=== PATIENT | female | born 1950 | race Two or more races ===

== ENCOUNTER 2019-10-07 21:28 | Emergency (ER) | payer MEDICARE, MEDICAID ==
[~2019-10-07] VITALS: Ht 160 cm; Wt 86.2 kg
[2019-10-07] MEDS ORDERED: Metoclopramide 10mg/2ml Inj IVP ONE (21:30)
[2019-10-07] MEDS ORDERED: Omnipaque-300 100ml vial INJ PRN (21:30)
[2019-10-07] MEDS ORDERED: Morphine Sulfate 2mg/ml Inj(IV/IM USE ONLY) IVP ONE ×2 (21:30→22:30)
[2019-10-07] MEDS ORDERED: DiphenhydrAMINE 50mg/ml Inj IVP ONE (21:30)
--- NOTE | 2019-10-07 22:02 | Emergency Room Report ---
History of Present Illness General Chief Complaint: Abdominal Pain Source: Patient, EMS (Jarred Lynn MD) Present Illness HPI Patient called 911 because she was having severe cramps in her legs. Then her abdomen started hurting. Patient has a history of cirrhosis. This began earlier today. She states she is never had this problem before. She denies any fevers or chills. She will not characterize the pain in her abdomen. She states the muscle cramps are severe causing 10/10 pain. They are worse in the right leg and foot. The patient is in distress and will not answer most questions regarding review of systems. (Jarred Lynn MD) Allergies: Coded Allergies: No Known Allergies (Unverified , 10/07/19) COVID-19 Screening Contact w/high risk pt: No Experienced COVID-19 symptoms?: No COVID-19 Testing performed PAYMENT REP: No (Jarred Lynn MD) Patient History Limited by: medical condition Past Medical History: see triage record Social History Narrative From home Reviewed Nursing Documentation: PMH: Agreed; PSxH: Agreed (Jarred Lynn MD) Nursing Documentation-PMH Hx Hypertension: Yes - LIVER CIRRHOSIS Hx Diabetes: Yes (Jarred Lynn MD) Review of Systems All Other Systems: limited (Jarred Lynn MD) Physical Exam Vital Signs Date Time Temp Pulse Resp B/P (MAP) Pulse Ox O2 Delivery O2 Flow Rate FiO2 10/07/19 21:23 97.3 86 20 119/68 (85) 99 Room Air Sp02 EP Interpretation: reviewed, normal General Appearance: moderate distress, obese Head: normocephalic Eyes: bilateral eye normal inspection, bilateral eye PERRL, bilateral eye EOMI , bilateral eye other - Pterygiums ENT: moist mucus membranes Respiratory: chest non-tender, lungs clear Cardiovascular #1: regular rate, rhythm, no edema Cardiovascular #2: 2+ radial (R) Gastrointestinal: soft, no rebound, tenderness - Reported, hernia - Miguel Joo , overweight Genitourinary: no CVA tenderness Musculoskeletal: normal range of motion, no calf tenderness, other - Right legs with muscles and cramps Neurologic: motor strength/tone normal, loftsman III-XII nml as tested, DTRs symmetric, sensory intact, speech normal, other Psychiatric: anxious - In severe pain Skin: no rash, warm/dry, other - Tattoos (Jarred Lynn MD) Medical Decision Making Diagnostic Impression: Primary Impression: Abdominal pain Qualified Codes: R10.84 - Generalized abdominal pain Additional Impressions: Cirrhosis Qualified Codes: K74.60 - Unspecified cirrhosis of liver Hypomagnesemia Pleural effusion Cholecystitis Muscle cramps ER Course Patient presents and moderate distress complaining of cramps and abdominal pain. Differential includes electrolyte imbalance, DVT, peritonitis, diverticulitis, urinary tract infection, aortic aneurysm amongst others. Patient evaluated with EKG, chest x-ray, CT of the abdomen and pelvis and labs. Patient treated with Reglan, Benadryl, Pepcid and morphine. EKG sinus rhythm with prolonged QT interval. Chest x-ray no infiltrates. White count normal with slightly elevated neutrophils but no left shift. CMP remarkable for elevated liver function tests and glucose. Ammonia minimally elevated. Lab call with elevated lactic acid. Will give 1 liter bolus now and re-assess. Concern about possible fluid overload. Multiple causes for elevated lactate - liver failure. 2241 Will cover with cefepime and Levaquin to cover abdominal source. Strickland ordered. Patient pain improved. Less cramping after magnesium and morphine. Abdomen still still soft. Patient signed out to Dr. Maddox for ultimate disposition. Patient needs admission to telemetry due to elevated lactic acid and probable further antibiotic administration. See labs recorded by Dr. Maddox. (Jarred Lynn MD) ER Course Patient was endorsed me by Dr. Lynn. Patient had extremity cramping as well as abdominal discomfort and history of cirrhosis. CT imaging had showed some gallbladder thickening and abnormal liver function tests as well as right-sided pleural effusion. Patient was discussed with Dr. Nettles and patient will be transferred to [facility] facility. Lactic acid level was noted to be improved. Labs Test 10/07/19 21:40 10/07/19 22:00 10/07/19 23:30 White Blood Count 8.9 K/UL (4.8-10.8) Red Blood Count 4.21 M/UL (4.20-5.40) Hemoglobin 11.1 G/DL (12.0-16.0) Hematocrit 35.3 % (37.0-47.0) Mean Corpuscular Volume 84 FL (80-99) Mean Corpuscular Hemoglobin 26.5 PG (27.0-31.0) Mean Corpuscular Hemoglobin Concent 31.6 G/DL (32.0-36.0) Red Cell Distribution Width 16.0 % (11.6-14.8) Platelet Count 141 K/UL (150-450) Mean Platelet Volume 9.3 FL (6.5-10.1) Neutrophils (%) (Auto) 74.2 % (45.0-75.0) Lymphocytes (%) (Auto) 14.6 % (20.0-45.0) Monocytes (%) (Auto) 8.9 % (1.0-10.0) Eosinophils (%) (Auto) 1.5 % (0.0-3.0) Basophils (%) (Auto) 0.8 % (0.0-2.0) Sodium Level 136 MMOL/L (136-145) Potassium Level 3.5 MMOL/L (3.5-5.1) Chloride Level 100 MMOL/L (98-107) Carbon Dioxide Level 24 MMOL/L (21-32) Anion Gap 12 mmol/L (5-15) Blood Urea Nitrogen 11 mg/dL (7-18) Creatinine 1.1 MG/DL (0.55-1.30) Estimat Glomerular Filtration Rate 49.4 mL/min (>60) Glucose Level 181 MG/DL (74-106) Calcium Level 8.7 MG/DL (8.5-10.1) Magnesium Level 1.6 MG/DL (1.8-2.4) Total Bilirubin 2.0 MG/DL (0.2-1.0) Direct Bilirubin 0.5 MG/DL (0.0-0.3) Aspartate Amino Transf (AST/SGOT) 44 U/L (15-37) Alanine Aminotransferase (ALT/SGPT) 44 U/L (12-78) Alkaline Phosphatase 140 U/L (46-116) Ammonia 38 umol/L (11-32) Troponin I 0.000 ng/mL (0.000-0.056) Total Protein 7.2 G/DL (6.4-8.2) Albumin 3.4 G/DL (3.4-5.0) Globulin 3.8 g/dL Albumin/Globulin Ratio 0.9 (1.0-2.7) Lipase 130 U/L (73-393) Serum Alcohol < 3 mg/dL Prothrombin Time 11.3 SEC (9.30-11.50) Prothromb Time International Ratio 1.0 (0.9-1.1) Activated Partial Thromboplast Time 24 SEC (23-33) Urine Color Pale yellow Urine Appearance Clear Urine pH 6.5 (4.5-8.0) Urine Specific [place] 1.005 (1.005-1.035) Urine Protein Negative (NEGATIVE) Urine Glucose (UA) Negative (NEGATIVE) Urine Ketones Negative (NEGATIVE) Urine Blood Negative (NEGATIVE) Urine Nitrite Negative (NEGATIVE) Urine Bilirubin Negative (NEGATIVE) Urine Urobilinogen Normal MG/DL (0.0-1.0) Urine Leukocyte Esterase Negative (NEGATIVE) Lactic Acid Level 1.90 mmol/L (0.66-2.22) Urine Opiates Screen Negative (NEGATIVE) Urine Barbiturates Screen Negative (NEGATIVE) Phencyclidine (PCP) Screen Negative (NEGATIVE) Urine Amphetamines Screen Negative (NEGATIVE) Urine Benzodiazepines Screen Negative (NEGATIVE) Urine Cocaine Screen Negative (NEGATIVE) Urine Marijuana (THC) Screen Negative (NEGATIVE) (Layton Maddox MD) EKG Diagnostic Results Rate: normal Rhythm: NSR ST Segments: no acute changes - Prolonged QT (Jarred Lynn MD) Rhythm Strip Diag. Results EP Interpretation: yes Rhythm: NSR, no PVC's, no ectopy (Jarred Lynn MD) Chest X-Ray Diagnostic Results Chest X-Ray Diagnostic Results : Chest X-Ray Ordered: Yes # of Views/Limited/Complete: 1 View Indication: Other EP Interpretation: Yes Interpretation: no consolidation, no effusion, no pneumothorax Impression: No acute disease Electronically Signed by: Electronically signed by Jarred Lynn MD (Jarred Lynn MD) CT/MRI/US Diagnostic Results CT/MRI/US Diagnostic Results : Imaging Test Ordered: CT abdomen and pelvis Impression 1. Cirrhosis, recanalized umbilical vein, massive splenomegaly 20cm AP dimension, upper abdominal varices. 2. Liquid small bowel contents could be incidental or could represent an infectious or inflammatory enteritis in the proper context. 3. Gallbladder distention with mild wall thickening, correlate to exclude acute cholecystitis. This could also be due to cirrhosis. 4. Moderate right low-attenuation layering pleural effusion with passive atelectasis. 5. Colonic diverticulosis without acute diverticulitis. (Jarred Lynn MD) Last Vital Signs Date Time Temp Pulse Resp B/P (MAP) Pulse Ox O2 Delivery O2 Flow Rate FiO2 8/19/20 23:22 71 18 100 Room Air 21 67 18 97 10/07/19 23:00 97.3 119/68 Status: improved (Jarred Lynn MD) Status: improved (Layton Maddox MD) Disposition: SHORT-TERM HOSP Condition: Serious Jarred Lynn MD Oct 07, 2019 22:02 Layton Maddox MD Oct 08, 2019 01:01
[2019-10-07 22:05] LABS: BASOPHILS % (AUTO) 0.8 % (0.0-2.0); EOSINOPHILS % (AUTO) 1.5 % (0.0-3.0); HEMATOCRIT 35.3 % (37.0-47.0); HEMOGLOBIN 11.1 G/DL (12.0-16.0); LYMPHOCYTES % (AUTO) 14.6 % (20.0-45.0); MEAN CORPUSCULAR VOLUME 84 FL (80-99); MONOCYTES % (AUTO) 8.9 % (1.0-10.0); NEUTROPHILS % (AUTO) 74.2 % (45.0-75.0); PLATELET COUNT 141 K/UL (150-450); RED BLOOD COUNT 4.21 M/UL (4.20-5.40); WHITE BLOOD COUNT 8.9 K/UL (4.8-10.8)
[2019-10-07 22:13] LABS: ANION GAP 12 mmol/L (5-15); BLOOD UREA NITROGEN 11 mg/dL (7-18); CALCIUM 8.7 MG/DL (8.5-10.1); CARBON DIOXIDE 24 MMOL/L (21-32); CHLORIDE 100 MMOL/L (98-107); CREATININE 1.1 MG/DL (0.55-1.30); POTASSIUM 3.5 MMOL/L (3.5-5.1); SODIUM 136 MMOL/L (136-145)
[2019-10-07] MEDS ORDERED: Morphine Sulfate 4mg/ml Inj (IV USE ONLY) IVP ONE (22:15)
[2019-10-07 22:16] LABS: AMMONIA 38 umol/L (11-32)
[2019-10-07 22:30] LABS: ALANINE AMINOTRANSFERASE 44 U/L (12-78); ALBUMIN 3.4 G/DL (3.4-5.0); ALBUMIN/GLOBULIN RATIO 0.9 (1.0-2.7); ALKALINE PHOSPHATASE 140 U/L (46-116); ASPARTATE AMINO TRANSFERASE 44 U/L (15-37)
[2019-10-07 22:33] LABS: BILIRUBIN,DIRECT 0.5 MG/DL (0.0-0.3)
--- NOTE | 2019-10-07 22:54 | Diagnostic Imaging Report ---
EXAM: CT Abdomen and Pelvis With Intravenous Contrast CLINICAL HISTORY: ABD PAIN TECHNIQUE: Axial computed tomography images of the abdomen and pelvis with intravenous contrast. CTDI is 18.9 mGy and DLP is 1045.5 mGy-cm. One or more of the following dose reduction techniques were used: automated exposure control, adjustment of the mA and/or kV according to patient size, use of iterative reconstruction technique. Coronal and sagittal reformatted images were created and reviewed. COMPARISON: No relevant prior studies available. FINDINGS: Lung bases: See below. Pleural space: Moderate right low-attenuation layering pleural effusion with passive atelectasis. ABDOMEN: Liver: Cirrhosis, recanalized umbilical vein, massive splenomegaly 20cm AP dimension, upper abdominal varices. Gallbladder and bile ducts: Gallbladder distention with mild wall thickening, correlate to exclude acute cholecystitis. This could also be due to cirrhosis. No ductal dilation. Pancreas: Unremarkable. No mass. No ductal dilation. Spleen: See above. Adrenals: Unremarkable. No mass. Kidneys and ureters: Benign right renal 3.1cm cyst requiring no additional followup. Unremarkable kidneys otherwise. No hydronephrosis. Stomach and bowel: Colonic diverticulosis without acute diverticulitis. Liquid small bowel contents could be incidental or could represent an infectious or inflammatory enteritis in the proper context. No obstruction. PELVIS: Appendix: No findings to suggest acute appendicitis. Bladder: Unremarkable. No mass. Reproductive: Unremarkable as visualized. ABDOMEN and PELVIS: Intraperitoneal space: Unremarkable. No free air. No significant fluid collection. Bones/joints: Degenerative spine findings. No acute fracture. No dislocation. Soft tissues: Fat containing periumbilical hernia. Vasculature: See above. Lymph nodes: Unremarkable. No enlarged lymph nodes. IMPRESSION: 1. Cirrhosis, recanalized umbilical vein, massive splenomegaly 20cm AP dimension, upper abdominal varices. 2. Liquid small bowel contents could be incidental or could represent an infectious or inflammatory enteritis in the proper context. 3. Gallbladder distention with mild wall thickening, correlate to exclude acute cholecystitis. This could also be due to cirrhosis. 4. Moderate right low-attenuation layering pleural effusion with passive atelectasis. 5. Colonic diverticulosis without acute diverticulitis.
[2019-10-07 23:00] VITALS: BP 119/68
[2019-10-07] MEDS ORDERED: Cefepime HCl 1 GM in D5W 55 ML IVPB ONE (23:00)
[2019-10-07 23:43] LABS: APPEARANCE,URINE CLEAR; BILIRUBIN, URINE NEGATIVE (NEGATIVE); COLOR,URINE PALE YELLOW; GLUCOSE, URINE (UA) NEGATIVE (NEGATIVE); KETONES,URINE NEGATIVE (NEGATIVE); NITRITE,URINE NEGATIVE (NEGATIVE); PH,URINE 6.5 (4.5-8.0); PROTEIN,URINE NEGATIVE (NEGATIVE); UROBILINOGEN,URINE NORMAL MG/DL (0.0-1.0)
[2019-10-08 00:01] LABS: LEUKOCYTE ESTERASE ,URINE NEGATIVE (NEGATIVE)
[2019-10-08 02:27] VITALS: BP 103/51
--- NOTE | 2019-10-08 09:27 | Diagnostic Imaging Report ---
Indication: Reason For Exam: ABD PAIN Technique: Single AP view of the chest. Comparison: None. Findings: Heart is not enlarged when accounting for projection and technique. There are low lung volumes, leading to bronchovascular crowding. There is right perihilar airspace opacity. No pneumothorax. No large pleural effusion. No acute osseous abnormality. IMPRESSION: Right perihilar airspace opacity which could represent atelectasis but pneumonia should be excluded clinically.
== END 2019-10-08 02:20 | disposition short-term general hospital (02) ==
LOC: EDBD 21:28 → EMR 22:11
DX: R10.84 Generalized abdominal pain (principal); K74.60 Unspecified cirrhosis of liver; E83.42 Hypomagnesemia; J90 Pleural effusion, not elsewhere classified; K81.9 Cholecystitis, unspecified; R25.2 Cramp and spasm; E11.9 Type 2 diabetes mellitus without complications
CPT/HCPCS: 36415; 51702; 71045; 74177; 80053; 80307; 81003; 82140; 82248; 83605; 83690; 83735; 84484; 85025; 85610; 85730; 86850; 86900; 86901; 87040; 93005; 94640; 96361; 96365; 96368; 96375; 96376; 99285; G0480; J0692; J1200; J1956; J2270; J2765; J7030; Q9967; S0028; U0002